=== PATIENT | male | born 1950 | race Two or more races ===

== ENCOUNTER 2022-01-18 10:12 | Inpatient (IN) | payer MEDICARE ==
[~2022-01-18] VITALS: Ht 170.2 cm; Wt 73.9 kg
[2022-01-18 11:27] LABS: Eosinophils # (auto) 0.4 10 ^3/uL (0-0.8); Eosinophils % (auto) 4.5 % (0.0-7.0); Hemoglobin 11.2 g/dL (13.5-17.5); Lymphocytes # (auto) 2.1 10 ^3/uL (0.4-5.4); Monocytes # (auto) 0.6 10 ^3/uL (0-1.3); Neutrophils # (auto) 4.7 10 ^3/uL (1.6-8.6); White Blood Cell 7.8 10^3/uL (4.4-10.8)
[2022-01-18 11:29] LABS: Basophils # (auto) 0.1 10 ^3/uL (0-0.2); Basophils % (auto) 0.8 % (0.0-2.0); Hematocrit 34.6 % (41.0-53.0); Lymphocytes % (auto) 26.2 % (10.0-50.0); Mean Corpuscular Hgb Conc. 32.3 g/dL (32.0-36.0); Mean Corpuscular Volume 80.6 fL (80.0-100.0); Monocytes % (auto) 7.9 % (0.0-12.0); Neutrophils % (auto) 60.6 % (37.0-80.0); Nucleated Red Blood Cells % 0.1 %; Red Cell Distribution Width 16.5 % (11.8-14.3)
[2022-01-18 11:44] LABS: INR 0.95 (0.9-1.15); Partial Thromboplastin Time 24.6 sec (24.6-33.4)
[2022-01-18 12:01] LABS: Potassium 4.8 mmol/L (3.5-5.1)
[2022-01-18 12:09] LABS: Albumin 3.9 g/dL (3.4-5.0); BUN/Creatinine Ratio 14.7; Bilirubin, Total 0.6 mg/dL (0.2-1.0); Calcium 9.2 mg/dL (8.5-10.1); Total Protein 8.1 g/dL (6.4-8.2)
[2022-01-18 14:54] LABS: Urine Bacteria NONE SEEN /hpf (None Seen); Urine Blood Negative /uL (Negative); Urine Specific Gravity 1.021 (1.001-1.035); Urine WBC <1 /hpf (0 - 3)
[2022-01-18] MEDS ORDERED: MORPHINE SULFATE INJ 2 MG/ml SYRG IV PRN (15:00)
[2022-01-18] MEDS ORDERED: DEXTROSE (50%) 50ML SYRG IV PRN (15:15)
[2022-01-18] MEDS ORDERED: cefTRIAXone 1GM/50ML D5W 50 ML IV ONE (15:30)
[2022-01-18] MEDS: ACCU-CHEK COMFORT CURVE STRIP VI SCH ×2 (21:18→22:48)
[2022-01-18] MEDS: InsuLIN REG 1unit/0.01ml Soln (100units/ml) SC SCH ×2 (21:24→22:57)
[2022-01-18] MEDS: HEPARIN SODIUM (PORCINE) 5000 UNITS/ML 1ML VIAL SC SCH (22:54)
[2022-01-18] MEDS: CLINDAMYCIN 600MG IV 50 ML IV SCH (22:54)
[2022-01-19] VITALS (8 sets, daily range): BP systolic 111–153; BP diastolic 39–75
[2022-01-19] MEDS ORDERED: FERR-20 PO (01:00)
[2022-01-19] MEDS ORDERED: VITA80005 PO (01:00)
[2022-01-19] MEDS ORDERED: LOSA-39 PO (01:00)
[2022-01-19] MEDS ORDERED: CHOL100055 PO (01:00)
[2022-01-19] MEDS ORDERED: PANT40TA2 PO (01:00)
[2022-01-19] MEDS ORDERED: METF-370 PO (01:00)
[2022-01-19] MEDS ORDERED: CLOP75TA70 PO (01:00)
[2022-01-19] MEDS ORDERED: METO25TA5 PO (01:00)
[2022-01-19] MEDS ORDERED: ATOR-47 PO (01:00)
[2022-01-19] MEDS ORDERED: PANT1INJ3 PO (01:00)
[2022-01-19] MEDS ORDERED: CYAN500S8 PO (01:00)
[2022-01-19] MEDS ORDERED: POTA10TA51 PO (01:00)
[2022-01-19] MEDS ORDERED: LEVO25TA6 PO (01:00)
[2022-01-19 05:32] LABS: Basophils # (auto) 0 10 ^3/uL (0-0.2); Basophils % (auto) 0.4 % (0.0-2.0); Eosinophils # (auto) 0.3 10 ^3/uL (0-0.8); Monocytes # (auto) 0.6 10 ^3/uL (0-1.3); Monocytes % (auto) 8.4 % (0.0-12.0)
[2022-01-19 05:35] LABS: Eosinophils % (auto) 4.8 % (0.0-7.0); Hematocrit 31.6 % (41.0-53.0); Hemoglobin 10.4 g/dL (13.5-17.5); Lymphocytes # (auto) 2.2 10 ^3/uL (0.4-5.4); Mean Corpuscular Hgb Conc. 32.8 g/dL (32.0-36.0); Mean Corpuscular Volume 79.3 fL (80.0-100.0); Neutrophils # (auto) 3.7 10 ^3/uL (1.6-8.6); Neutrophils % (auto) 54.4 % (37.0-80.0); Red Blood Cells 3.98 10^6/uL (4.5-5.90); Red Cell Distribution Width 16.2 % (11.8-14.3); White Blood Cell 6.9 10^3/uL (4.4-10.8)
[2022-01-19] MEDS: CLINDAMYCIN 600MG IV 50 ML IV SCH ×3 (05:35→21:50)
[2022-01-19 05:53] LABS: Potassium 3.8 mmol/L (3.5-5.1)
[2022-01-19 06:01] LABS: Albumin 3.4 g/dL (3.4-5.0); BUN/Creatinine Ratio 19.5; Bilirubin, Total 0.5 mg/dL (0.2-1.0); Calcium 8.7 mg/dL (8.5-10.1)
[2022-01-19] MEDS: ACCU-CHEK COMFORT CURVE STRIP VI SCH ×4 (06:38→21:54)
[2022-01-19] MEDS: InsuLIN REG 1unit/0.01ml Soln (100units/ml) SC SCH ×3 (06:40→21:45)
[2022-01-19] MEDS: cefTRIAXone 1GM/50ML D5W 50 ML IV SCH (08:30)
[2022-01-19] MEDS: HEPARIN SODIUM (PORCINE) 5000 UNITS/ML 1ML VIAL SC SCH ×2 (10:44→21:44)
[2022-01-19] MEDS ORDERED: FUROSEMIDE 20 MG/2 ML VIAL IV ONE (13:15)
[2022-01-19] MEDS: FUROSEMIDE 20 MG/2 ML VIAL IV SCH (19:22)
[2022-01-19] MEDS: ATORVASTATIN 20 MG TAB PO SCH (21:47)
[2022-01-20 05:00] VITALS: BP 114/59
[2022-01-20] MEDS: ACCU-CHEK COMFORT CURVE STRIP VI SCH ×4 (06:18→21:37)
[2022-01-20] MEDS: CLINDAMYCIN 600MG IV 50 ML IV SCH ×3 (06:23→21:46)
[2022-01-20] MEDS: InsuLIN REG 1unit/0.01ml Soln (100units/ml) SC SCH ×4 (06:23→21:55)
[2022-01-20] MEDS: FUROSEMIDE 20 MG/2 ML VIAL IV SCH ×2 (06:23→18:00)
[2022-01-20 07:07] LABS: Basophils # (auto) 0 10 ^3/uL (0-0.2); Basophils % (auto) 0.4 % (0.0-2.0); Hemoglobin 12.3 g/dL (13.5-17.5); Lymphocytes # (auto) 2.7 10 ^3/uL (0.4-5.4); Monocytes # (auto) 0.7 10 ^3/uL (0-1.3); White Blood Cell 8.5 10^3/uL (4.4-10.8)
[2022-01-20 07:10] LABS: Eosinophils # (auto) 0.3 10 ^3/uL (0-0.8); Hematocrit 36.9 % (41.0-53.0); Mean Corpuscular Hemoglobin 27.1 pg (28.0-32.0); Mean Corpuscular Hgb Conc. 33.4 g/dL (32.0-36.0); Neutrophils # (auto) 4.7 10 ^3/uL (1.6-8.6); Neutrophils % (auto) 55.6 % (37.0-80.0); Red Blood Cells 4.55 10^6/uL (4.5-5.90); Red Cell Distribution Width 16.3 % (11.8-14.3)
[2022-01-20 07:23] LABS: INR 0.94 (0.9-1.15); Partial Thromboplastin Time 25.5 sec (24.6-33.4)
[2022-01-20 07:27] LABS: Potassium 3.9 mmol/L (3.5-5.1)
[2022-01-20 07:34] LABS: BUN/Creatinine Ratio 19.2; Calcium 9.6 mg/dL (8.5-10.1)
[2022-01-20 08:30] VITALS: BP 108/53
[2022-01-20] MEDS: cefTRIAXone 1GM/50ML D5W 50 ML IV SCH (08:39)
[2022-01-20 09:21] VITALS: BP 108/53
[2022-01-20] MEDS: HEPARIN SODIUM (PORCINE) 5000 UNITS/ML 1ML VIAL SC SCH ×2 (10:30→22:00)
[2022-01-20 13:00] VITALS: BP 102/60
[2022-01-20] MEDS ORDERED: fentaNYL CITRATE 100 MCG/2 ML VL ONE ×2 (17:22→18:49)
[2022-01-20] MEDS ORDERED: SODIUM CHL 0.9% 50 ML ONE (17:22)
[2022-01-20] MEDS ORDERED: MIDAZOLAM HCL 2MG/2ML 2ml VIAL (1mg/ml) ONE (17:22)
[2022-01-20] MEDS ORDERED: ANGIOMAX 250 MG VIAL IV ONE (17:25)
[2022-01-20] MEDS ORDERED: IOHEXOL 350 MG/ML 100ML IJ ONE ×2 (17:27→18:11)
[2022-01-20] MEDS ORDERED: LIDOCAINE 2%HCL (LOCAL ANESTH.) INJ 20ML MDV ONE ×2 (17:28→17:54)
[2022-01-20] MEDS ORDERED: CLOPIDOGREL 300 MG TAB ONE (19:02)
[2022-01-20] MEDS ORDERED: ASPirin 81 mg TAB ONE (19:02)
[2022-01-20] MEDS: ATORVASTATIN 20 MG TAB PO SCH (21:46)
[2022-01-20 22:00] VITALS: BP 134/59
[2022-01-20] MEDS ORDERED: RIVAROXABAN 10 MG TAB PO SCH (22:00)
[2022-01-21 05:00] VITALS: BP 127/72
[2022-01-21] MEDS: ACCU-CHEK COMFORT CURVE STRIP VI SCH ×2 (05:57→11:40)
[2022-01-21] MEDS: FUROSEMIDE 20 MG/2 ML VIAL IV SCH (05:57)
[2022-01-21] MEDS: CLINDAMYCIN 600MG IV 50 ML IV SCH (05:57)
[2022-01-21] MEDS: InsuLIN REG 1unit/0.01ml Soln (100units/ml) SC SCH ×2 (06:48→12:07)
[2022-01-21 08:30] VITALS: BP 103/58
[2022-01-21] MEDS: cefTRIAXone 1GM/50ML D5W 50 ML IV SCH (08:40)
[2022-01-21 09:00] VITALS: BP 103/58
[2022-01-21] MEDS: HEPARIN SODIUM (PORCINE) 5000 UNITS/ML 1ML VIAL SC SCH (09:49)
[2022-01-21] MEDS ORDERED: CLOPIDOGREL BISULFATE 75 MG TAB PO SCH (10:00)
[2022-01-21] MEDS ORDERED: CLIN300C8 PO (12:23)
[2022-01-21 13:00] VITALS: BP 134/56
[2022-01-21 13:24] VITALS: BP 134/56
== END 2022-01-21 16:56 | disposition home or self-care (01) | DRG 254 ==
LOC: ER 10:12 → OVERFLOW 15:11 → CENTRAL 23:49
PROVIDERS: ADMIT Registered Nurse; ATTEND Family Medicine
PROC: 047R3ZZ Dilation of Right Posterior Tibial Artery, Percutaneous Approach (ICD-10-PCS; principal; 2022-01-18)
PROC: B44FZZZ Ultrasonography of Right Lower Extremity Arteries (ICD-10-PCS; 2022-01-18)
PROC: B41F1ZZ Fluoroscopy of Right Lower Extremity Arteries using Low Osmolar Contrast (ICD-10-PCS; 2022-01-18)
DX: E11.51 Type 2 diabetes mellitus with diabetic peripheral angiopathy without gangrene (principal); E11.621 Type 2 diabetes mellitus with foot ulcer; D63.8 Anemia in other chronic diseases classified elsewhere; E11.22 Type 2 diabetes mellitus with diabetic chronic kidney disease; E11.65 Type 2 diabetes mellitus with hyperglycemia; I12.9 Hypertensive chronic kidney disease with stage 1 through stage 4 chronic kidney disease, or unspecified chronic kidney disease; L97.529 Non-pressure chronic ulcer of other part of left foot with unspecified severity; N18.2 Chronic kidney disease, stage 2 (mild); Z20.822 Contact with and (suspected) exposure to COVID-19; I25.10 Atherosclerotic heart disease of native coronary artery without angina pectoris; E78.5 Hyperlipidemia, unspecified; L08.9 Local infection of the skin and subcutaneous tissue, unspecified; R09.89 Other specified symptoms and signs involving the circulatory and respiratory systems; E07.9 Disorder of thyroid, unspecified; E66.9 Obesity, unspecified; Z79.84 Long term (current) use of oral hypoglycemic drugs; Z68.25 Body mass index [BMI] 25.0-25.9, adult
CPT/HCPCS: 36415; 37220; 71045; 73700; 73718; 75710; 80048; 80053; 81001; 82962; 83880; 84484; 85025; 85610; 85730; 86850; 86900; 86901; 87077; 87186; 87205; 93005; 93306; 93926; 96365; 96372; 99152; 99153; C1769; G0378; J0696; J1815; J2250; J3490

== ENCOUNTER 2022-04-12 11:40 | Inpatient (IN) | payer MEDICARE ==
[~2022-04-12] VITALS: Ht 162.6 cm; Wt 69.6 kg
[~2022-04-12 11:40] MED LIST: ATOR-47 PO; CHOL100055 PO; CLIN300C8 PO; CLOP75TA70 PO; CYAN500S8 PO; FERR-20 PO; LEVO25TA6 PO; LOSA-39 PO; METF-370 PO; METO25TA5 PO; PANT1INJ3 PO; PANT40TA2 PO; POTA10TA51 PO; VITA80005 PO
[2022-04-12 13:12] LABS: Basophils # (auto) 0 10 ^3/uL (0-0.2); Eosinophils # (auto) 0.1 10 ^3/uL (0-0.8); Lymphocytes # (auto) 1.6 10 ^3/uL (0.4-5.4); Mean Corpuscular Volume 79.3 fL (80.0-100.0); Monocytes # (auto) 0.6 10 ^3/uL (0-1.3); Neutrophils # (auto) 6.3 10 ^3/uL (1.6-8.6); White Blood Cell 8.7 10^3/uL (4.4-10.8)
[2022-04-12 13:14] LABS: Basophils % (auto) 0.4 % (0.0-2.0); Eosinophils % (auto) 1.4 % (0.0-7.0); Hematocrit 35.8 % (41.0-53.0); Hemoglobin 11.7 g/dL (13.5-17.5); Lymphocytes % (auto) 18.4 % (10.0-50.0); Mean Corpuscular Hemoglobin 25.8 pg (28.0-32.0); Mean Corpuscular Hgb Conc. 32.5 g/dL (32.0-36.0); Neutrophils % (auto) 72.8 % (37.0-80.0); Red Blood Cells 4.51 10^6/uL (4.5-5.90); Red Cell Distribution Width 14.9 % (11.8-14.3)
[2022-04-12 13:20] LABS: INR 0.97 (0.9-1.15); Partial Thromboplastin Time 25.4 sec (24.6-33.4)
[2022-04-12 13:24] LABS: Albumin 3.5 g/dL (3.4-5.0); BUN/Creatinine Ratio 15.7; Calcium 8.9 mg/dL (8.5-10.1); Potassium 4.1 mmol/L (3.5-5.1)
[2022-04-12 13:27] LABS: Bilirubin, Total 0.6 mg/dL (0.2-1.0); Total Protein 7.7 g/dL (6.4-8.2)
[2022-04-12] MEDS ORDERED: PIPERACILLIN-TAZOB 3.375GM 100 ML IV ONE (15:15)
[2022-04-12] MEDS ORDERED: MORPHINE SULFATE INJ 2 MG/ml SYRG IV PRN (15:45)
[2022-04-12] MEDS ORDERED: NITROGLYCERIN 0.4 MG SL TAB SL PRN (15:45)
[2022-04-12] MEDS ORDERED: DEXTROSE (50%) 50ML SYRG IV PRN (16:15)
[2022-04-12] MEDS: ACCU-CHEK COMFORT CURVE STRIP VI SCH ×2 (17:00→22:30)
[2022-04-12 17:12] LABS: Cholesterol 150 mg/dL (< 200)
[2022-04-12 17:15] LABS: HDL Cholesterol 41 mg/dL (40-59); LDL Cholesterol 80 mg/dL (< 100); Triglycerides 255 mg/dL (< 150)
[2022-04-12] MEDS: InsuLIN REG 1unit/0.01ml Soln (100units/ml) SC SCH ×2 (20:46→22:30)
[2022-04-12] MEDS: HYDROcodone-ACET 5/325MG TAB PO PRN (20:47)
[2022-04-12] MEDS: MORPHINE SULFATE INJ 2 MG/ml SYRG IV PRN (23:59)
[2022-04-13] MEDS: HYDROcodone-ACET 5/325MG TAB PO PRN ×4 (01:08→20:41)
[2022-04-13] MEDS: InsuLIN REG 1unit/0.01ml Soln (100units/ml) SC SCH ×4 (06:46→23:37)
[2022-04-13] MEDS: ACCU-CHEK COMFORT CURVE STRIP VI SCH ×3 (06:46→17:00)
[2022-04-13 06:59] LABS: Urine Bacteria NONE SEEN /hpf (None Seen); Urine Blood Negative /uL (Negative); Urine Specific Gravity 1.019 (1.001-1.035); Urine WBC 5 /hpf (0 - 3)
[2022-04-13 07:06] LABS: BUN/Creatinine Ratio 13.3; Calcium 9.2 mg/dL (8.5-10.1); Potassium 3.9 mmol/L (3.5-5.1)
[2022-04-13 07:15] LABS: Basophils # (auto) 0 10 ^3/uL (0-0.2); Basophils % (auto) 0.3 % (0.0-2.0); Eosinophils # (auto) 0.2 10 ^3/uL (0-0.8); Monocytes # (auto) 0.8 10 ^3/uL (0-1.3); Nucleated Red Blood Cells % 0.1 %
[2022-04-13 07:17] LABS: Eosinophils % (auto) 2.7 % (0.0-7.0); Hematocrit 34.8 % (41.0-53.0); Hemoglobin 11.1 g/dL (13.5-17.5); Lymphocytes # (auto) 2.3 10 ^3/uL (0.4-5.4); Lymphocytes % (auto) 26.8 % (10.0-50.0); Mean Corpuscular Hemoglobin 25.5 pg (28.0-32.0); Mean Corpuscular Volume 79.8 fL (80.0-100.0); Monocytes % (auto) 9.2 % (0.0-12.0); Neutrophils # (auto) 5.2 10 ^3/uL (1.6-8.6); Red Blood Cells 4.36 10^6/uL (4.5-5.90); Red Cell Distribution Width 14.6 % (11.8-14.3); White Blood Cell 8.6 10^3/uL (4.4-10.8)
[2022-04-13] MEDS: MORPHINE SULFATE INJ 2 MG/ml SYRG IV PRN ×2 (08:12→22:59)
[2022-04-13] MEDS ORDERED: cefTRIAXone 1GM/50ML D5W 50 ML IV ONE (12:45)
[2022-04-13] MEDS: CLINDAMYCIN 300MG IV 50 ML IV SCH ×2 (14:17→22:57)
[2022-04-13 23:37] VITALS: BP 103/52
[2022-04-14] MEDS: MORPHINE SULFATE INJ 2 MG/ml SYRG IV PRN (03:22)
[2022-04-14] MEDS: ACCU-CHEK COMFORT CURVE STRIP VI SCH ×5 (03:47→22:18)
[2022-04-14 05:20] VITALS: BP 98/48
[2022-04-14] MEDS: CLINDAMYCIN 300MG IV 50 ML IV SCH ×3 (05:50→21:51)
[2022-04-14] MEDS: InsuLIN REG 1unit/0.01ml Soln (100units/ml) SC SCH ×4 (06:10→22:17)
[2022-04-14] MEDS ORDERED: ceFAZolin 1GM/50ML 100 ML IV ONE (08:53)
[2022-04-14 09:00] VITALS: BP 139/59
[2022-04-14] MEDS: cefTRIAXone 1GM/50ML D5W 50 ML IV SCH (09:00)
[2022-04-14] MEDS ORDERED: fentaNYL CITRATE 100 MCG/2 ML VL ONE (09:14)
[2022-04-14] MEDS ORDERED: MIDAZOLAM HCL 2MG/2ML 2ml VIAL (1mg/ml) ONE (09:14)
[2022-04-14] MEDS ORDERED: MEPERIDINE HCL (25 MG/ML) 1ML VIAL ONE (09:14)
[2022-04-14] MEDS ORDERED: ceFAZolin 1GM VL ONE (09:36)
[2022-04-14] MEDS ORDERED: ROPIVACAINE 0.5% (5MG/ML) 20ML AMPULE IJ ONE (09:36)
[2022-04-14] MEDS ORDERED: DexAMETHasone SOD PHOS 10MG/1ML VIAL INJ ONE (09:49)
[2022-04-14] MEDS ORDERED: PROPOFOL 10 MG/ML 20 ML IV ONE (09:49)
[2022-04-14 13:00] VITALS: BP 109/55
[2022-04-14] MEDS ORDERED: LIDOCAINE 1% (LOCAL ANESTH.) PF 5ml SDV ID ONE (16:15)
[2022-04-14 16:59] VITALS: BP 110/49
[2022-04-14 20:00] VITALS: BP 110/47
[2022-04-14] MEDS: RIVAROXABAN 10 MG TAB PO SCH (21:50)
[2022-04-14 22:00] VITALS: BP_SYST 100; BP_SYST 110; BP_DIAS 47; BP_DIAS 56
[2022-04-15 04:54] VITALS: BP 133/51
[2022-04-15] MEDS: CLINDAMYCIN 300MG IV 50 ML IV SCH ×3 (06:10→21:47)
[2022-04-15] MEDS: SODIUM CHLOR 0.9% PF (SALINE LOCK) 10ML VIAL/SYR IV SCH ×3 (06:11→21:48)
[2022-04-15] MEDS: ACCU-CHEK COMFORT CURVE STRIP VI SCH ×4 (06:34→22:23)
[2022-04-15] MEDS: InsuLIN REG 1unit/0.01ml Soln (100units/ml) SC SCH ×4 (06:34→22:30)
[2022-04-15 08:54] VITALS: BP 140/52
[2022-04-15] MEDS: cefTRIAXone 1GM/50ML D5W 50 ML IV SCH (09:52)
[2022-04-15] MEDS: RIVAROXABAN 10 MG TAB PO SCH ×2 (09:56→21:48)
[2022-04-15 13:00] VITALS: BP 128/58
[2022-04-15] MEDS: ACETAMINOPHEN 325 MG TAB PO PRN ×2 (16:05→21:48)
[2022-04-15 16:44] VITALS: BP 131/46
[2022-04-15 19:30] VITALS: BP 137/69
[2022-04-15 22:00] VITALS: BP 137/69
[2022-04-16 05:00] VITALS: BP_SYST 144; BP_SYST 153; BP_DIAS 68; BP_DIAS 85
[2022-04-16] MEDS: CLINDAMYCIN 300MG IV 50 ML IV SCH ×3 (05:46→21:35)
[2022-04-16] MEDS: ACCU-CHEK COMFORT CURVE STRIP VI SCH ×4 (06:25→22:15)
[2022-04-16] MEDS: InsuLIN REG 1unit/0.01ml Soln (100units/ml) SC SCH ×4 (06:34→22:19)
[2022-04-16 08:00] VITALS: BP_SYST 136; BP_SYST 137; BP_DIAS 54; BP_DIAS 69
[2022-04-16] MEDS: SODIUM CHLOR 0.9% PF (SALINE LOCK) 10ML VIAL/SYR IV SCH ×2 (10:00→21:43)
[2022-04-16] MEDS: cefTRIAXone 1GM/50ML D5W 50 ML IV SCH (10:11)
[2022-04-16] MEDS: RIVAROXABAN 10 MG TAB PO SCH ×2 (10:12→21:39)
[2022-04-16] MEDS: HYDROcodone-ACET 5/325MG TAB PO PRN (10:12)
[2022-04-16 12:00] VITALS: BP 103/43
[2022-04-16 16:00] VITALS: BP 130/52
[2022-04-16] MEDS: ACETAMINOPHEN 325 MG TAB PO PRN (18:22)
[2022-04-16] MEDS: DOCUSATE SOD 100 MG CAP PO SCH (21:39)
[2022-04-17 05:00] VITALS: BP 96/62
[2022-04-17] MEDS: CLINDAMYCIN 300MG IV 50 ML IV SCH (06:00)
[2022-04-17] MEDS: ACCU-CHEK COMFORT CURVE STRIP VI SCH ×4 (07:12→22:00)
[2022-04-17] MEDS: InsuLIN REG 1unit/0.01ml Soln (100units/ml) SC SCH ×4 (07:16→22:00)
[2022-04-17] MEDS: HYDROcodone-ACET 5/325MG TAB PO PRN (08:16)
[2022-04-17] MEDS: cefTRIAXone 1GM/50ML D5W 50 ML IV SCH (08:16)
[2022-04-17] MEDS: SODIUM CHLOR 0.9% PF (SALINE LOCK) 10ML VIAL/SYR IV SCH ×2 (08:17→22:59)
[2022-04-17] MEDS: DOCUSATE SOD 100 MG CAP PO SCH ×2 (08:17→22:00)
[2022-04-17] MEDS: RIVAROXABAN 10 MG TAB PO SCH ×2 (08:17→23:00)
[2022-04-17] MEDS ORDERED: ACETAMINOPHEN 325 MG TAB PO ONE (08:45)
[2022-04-17 09:00] VITALS: BP 91/37
[2022-04-17] MEDS ORDERED: levoFLOXacin 500MG 100 ML IV SCH (10:00)
[2022-04-17 13:00] VITALS: BP 99/58
[2022-04-17 16:53] VITALS: BP 95/57
[2022-04-17 21:59] VITALS: BP 99/56
[2022-04-18] MEDS: InsuLIN REG 1unit/0.01ml Soln (100units/ml) SC SCH ×4 (06:45→22:06)
[2022-04-18] MEDS: ACCU-CHEK COMFORT CURVE STRIP VI SCH ×4 (06:45→22:04)
[2022-04-18] MEDS: RIVAROXABAN 10 MG TAB PO SCH ×2 (08:13→22:03)
[2022-04-18] MEDS: SODIUM CHLOR 0.9% PF (SALINE LOCK) 10ML VIAL/SYR IV SCH ×2 (08:13→22:06)
[2022-04-18] MEDS: cefTRIAXone 1GM/50ML D5W 50 ML IV SCH (08:13)
[2022-04-18] MEDS: DOCUSATE SOD 100 MG CAP PO SCH ×2 (08:13→22:03)
[2022-04-18 08:17] VITALS: BP 103/59
[2022-04-18] MEDS ORDERED: cefTRIAXone 1GM/50ML D5W 50 ML IV SCH (09:00)
[2022-04-18 13:12] VITALS: BP_SYST 126; BP_SYST 91; BP_DIAS 51; BP_DIAS 70
[2022-04-18 17:00] VITALS: BP 94/43
[2022-04-18 22:00] VITALS: BP 105/59
[2022-04-19] MEDS: HYDROcodone-ACET 5/325MG TAB PO PRN (01:14)
[2022-04-19 05:00] VITALS: BP 127/75
[2022-04-19] MEDS: ACCU-CHEK COMFORT CURVE STRIP VI SCH ×3 (06:12→17:03)
[2022-04-19] MEDS: InsuLIN REG 1unit/0.01ml Soln (100units/ml) SC SCH ×3 (06:13→18:30)
[2022-04-19 08:58] VITALS: BP 104/56
[2022-04-19] MEDS: cefTRIAXone 1GM/50ML D5W 50 ML IV SCH (09:05)
[2022-04-19] MEDS: DOCUSATE SOD 100 MG CAP PO SCH (09:06)
[2022-04-19] MEDS: RIVAROXABAN 10 MG TAB PO SCH (09:06)
[2022-04-19] MEDS: SODIUM CHLOR 0.9% PF (SALINE LOCK) 10ML VIAL/SYR IV SCH (10:00)
[2022-04-19 13:00] VITALS: BP 101/53
[2022-04-19 16:17] VITALS: BP 99/55
== END 2022-04-19 18:45 | DRG 617 ==
LOC: ER 11:40 → OVERFLOW 15:50 → WEST WING 04-13 21:47
PROVIDERS: ADMIT Registered Nurse; ATTEND Family Medicine
PROC: 02HV33Z Insertion of Infusion Device into Superior Vena Cava, Percutaneous Approach (ICD-10-PCS; 2022-04-14)
PROC: B548ZZA Ultrasonography of Superior Vena Cava, Guidance (ICD-10-PCS; 2022-04-14)
PROC: 0Y6W0Z0 Detachment at Left 4th Toe, Complete, Open Approach (ICD-10-PCS; principal; 2022-04-14 09:53)
DX: E11.69 Type 2 diabetes mellitus with other specified complication (principal); E11.52 Type 2 diabetes mellitus with diabetic peripheral angiopathy with gangrene; M86.8X7 Other osteomyelitis, ankle and foot; E11.621 Type 2 diabetes mellitus with foot ulcer; I82.442 Acute embolism and thrombosis of left tibial vein; E66.9 Obesity, unspecified; I10 Essential (primary) hypertension; L97.529 Non-pressure chronic ulcer of other part of left foot with unspecified severity; B95.61 Methicillin susceptible Staphylococcus aureus infection as the cause of diseases classified elsewhere; Z68.26 Body mass index [BMI] 26.0-26.9, adult; I25.10 Atherosclerotic heart disease of native coronary artery without angina pectoris; E78.5 Hyperlipidemia, unspecified; E07.9 Disorder of thyroid, unspecified; Z89.422 Acquired absence of other left toe(s); I25.2 Old myocardial infarction; Z20.822 Contact with and (suspected) exposure to COVID-19
CPT/HCPCS: 36415; 36569; 71045; 80048; 80053; 80061; 81001; 82962; 83036; 83605; 84484; 85025; 85610; 85730; 86850; 86900; 86901; 87040; 87070; 87075; 87077; 87186; 87205; 87426; 93005; 93926; 97163; G0378; J0690; J0696; J1100; J1815; J2250; J2543; J2704; J3490

== ENCOUNTER 2022-05-11 18:21 | Inpatient (IN) | payer MEDICARE ==
[~2022-05-11] VITALS: Ht 162.6 cm; Wt 75.1 kg
[2022-05-11] MEDS ORDERED: cefTRIAXone 1GM/50ML D5W 50 ML IV ONE (19:30)
[2022-05-11 21:31] LABS: Basophils # (auto) 0 10 ^3/uL (0-0.2); Eosinophils # (auto) 0.4 10 ^3/uL (0-0.8); Hemoglobin 11.7 g/dL (13.5-17.5); Lymphocytes # (auto) 2.3 10 ^3/uL (0.4-5.4); White Blood Cell 7.2 10^3/uL (4.4-10.8)
[2022-05-11 21:33] LABS: Basophils % (auto) 0.5 % (0.0-2.0); Eosinophils % (auto) 4.9 % (0.0-7.0); Hematocrit 36.1 % (41.0-53.0); Mean Corpuscular Hemoglobin 25.1 pg (28.0-32.0); Mean Corpuscular Hgb Conc. 32.3 g/dL (32.0-36.0); Mean Corpuscular Volume 77.6 fL (80.0-100.0); Monocytes # (auto) 0.6 10 ^3/uL (0-1.3); Monocytes % (auto) 7.7 % (0.0-12.0); Neutrophils # (auto) 3.9 10 ^3/uL (1.6-8.6); Neutrophils % (auto) 54.9 % (37.0-80.0); Nucleated Red Blood Cells % 0.1 %; Red Blood Cells 4.66 10^6/uL (4.5-5.90); Red Cell Distribution Width 15.7 % (11.8-14.3)
[2022-05-11 21:46] LABS: Albumin 3.1 g/dL (3.4-5.0); Calcium 9.3 mg/dL (8.5-10.1); Potassium 4.2 mmol/L (3.5-5.1)
[2022-05-11 21:49] LABS: Bilirubin, Total 0.4 mg/dL (0.2-1.0); Total Protein 8.6 g/dL (6.4-8.2)
[2022-05-12] MEDS ORDERED: MORPHINE SULFATE INJ 2 MG/ml SYRG IV PRN
[2022-05-12] MEDS ORDERED: ONDANSETRON HCL 4 MG/2 ML VIAL IV PRN
[2022-05-12] MEDS ORDERED: MAALOX PLUS or MAALOX 30 ML PO PRN
[2022-05-12] MEDS ORDERED: LORazepam 0.5 MG TAB PO PRN
[2022-05-12] MEDS ORDERED: DOCUSATE SOD 100 MG CAP PO PRN
[2022-05-12] MEDS ORDERED: ACETAMINOPHEN 325 MG TAB PO PRN
[2022-05-12] MEDS: SODIUM CHLORIDE 0.9% 1,000 ML IV SCH ×2 (05:25→19:52)
[2022-05-12] MEDS: ROPIVACAINE 0.5% (5MG/ML) 20ML AMPULE IJ ONE ×2 (06:52→09:25)
[2022-05-12] MEDS ORDERED: BACITRACIN TOP OINT 1 UD PKG TOP ONE (06:52)
[2022-05-12] MEDS ORDERED: ceFAZolin 1GM VL ONE (06:53)
[2022-05-12] MEDS ORDERED: ROCURONIUM 10MG/ML 10ML VIAL IV ONE (07:11)
[2022-05-12] MEDS ORDERED: SUCCINYLCHOLINE CHLORIDE 20 MG/ML 10ML VIAL IV ONE (07:11)
[2022-05-12 07:24] LABS: Calcium 9.7 mg/dL (8.5-10.1); Potassium 4.3 mmol/L (3.5-5.1)
[2022-05-12 07:28] LABS: BUN/Creatinine Ratio 12.7
[2022-05-12 07:40] LABS: Basophils # (auto) 0 10 ^3/uL (0-0.2); Basophils % (auto) 0.5 % (0.0-2.0); Eosinophils # (auto) 0.4 10 ^3/uL (0-0.8); Eosinophils % (auto) 5.6 % (0.0-7.0); Hematocrit 36.5 % (41.0-53.0); Hemoglobin 11.7 g/dL (13.5-17.5); Lymphocytes # (auto) 2.2 10 ^3/uL (0.4-5.4); Lymphocytes % (auto) 33.4 % (10.0-50.0); Mean Corpuscular Hemoglobin 25.4 pg (28.0-32.0); Mean Corpuscular Hgb Conc. 32.2 g/dL (32.0-36.0); Mean Corpuscular Volume 79.1 fL (80.0-100.0); Monocytes # (auto) 0.6 10 ^3/uL (0-1.3); Monocytes % (auto) 8.3 % (0.0-12.0); Neutrophils # (auto) 3.5 10 ^3/uL (1.6-8.6); Neutrophils % (auto) 52.2 % (37.0-80.0); Nucleated Red Blood Cells % 0.1 %; Red Blood Cells 4.61 10^6/uL (4.5-5.90); Red Cell Distribution Width 15.9 % (11.8-14.3); White Blood Cell 6.7 10^3/uL (4.4-10.8)
[2022-05-12] MEDS ORDERED: PROPOFOL 10 MG/ML 20 ML IV ONE (07:56)
[2022-05-12] MEDS ORDERED: SODIUM CHLORIDE LOCK 10 ML ONE (07:56)
[2022-05-12] MEDS ORDERED: MIDAZOLAM HCL 2MG/2ML 2ml VIAL (1mg/ml) ONE (07:56)
[2022-05-12] MEDS ORDERED: fentaNYL CITRATE 100 MCG/2 ML VL ONE (07:56)
[2022-05-12] MEDS ORDERED: HYDROmorphone HCL 2 MG/ML VL/or syr IV PRN ×3 (08:00)
[2022-05-12] MEDS ORDERED: METOCLOPRAMIDE HCL 5MG/ml INJ 2ml VIAL IV PRN (08:00)
[2022-05-12] MEDS ORDERED: ACCU-CHEK COMFORT CURVE STRIP VI ONE (08:00)
[2022-05-12] MEDS ORDERED: ceFAZolin 1GM/50ML 100 ML IV ONE (08:55)
[2022-05-12] MEDS: MORPHINE SULFATE INJ 2 MG/ml SYRG IV PRN ×2 (10:27→10:59)
[2022-05-12] MEDS: cefTRIAXone 1GM/50ML D5W 50 ML IV SCH (16:25)
[2022-05-12 17:25] VITALS: BP 138/45
[2022-05-12] MEDS ORDERED: LEVO50TA7 PO (18:51)
[2022-05-12] MEDS ORDERED: INSU70IN3 SC (18:52)
[2022-05-12] MEDS: ATORVASTATIN 20 MG TAB PO SCH (19:52)
[2022-05-12] MEDS: HYDROcodone-ACET 5/325MG TAB PO PRN (21:59)
[2022-05-12 22:00] VITALS: BP 135/67
[2022-05-13 05:00] VITALS: BP 103/51
[2022-05-13] MEDS: LEVOTHYROXINE SODIUM 25 MCG TAB PO SCH (06:21)
[2022-05-13 09:00] VITALS: BP 116/33
[2022-05-13] MEDS: SODIUM CHLORIDE 0.9% 1,000 ML IV SCH (09:20)
[2022-05-13] MEDS: METOPROLOL TARTRATE 25 MG TAB PO SCH ×2 (09:43→10:00)
[2022-05-13] MEDS: LOSARTAN POTASSIUM 50 MG TAB PO SCH ×2 (09:43→10:00)
[2022-05-13] MEDS: CLOPIDOGREL BISULFATE 75 MG TAB PO SCH ×2 (09:44→10:00)
[2022-05-13] MEDS: cefTRIAXone 1GM/50ML D5W 50 ML IV SCH (09:44)
[2022-05-13 13:00] VITALS: BP 99/35
[2022-05-13] MEDS: HYDROcodone-ACET 5/325MG TAB PO PRN (16:06)
[2022-05-13 17:00] VITALS: BP 118/45
[2022-05-13] MEDS: ATORVASTATIN 20 MG TAB PO SCH (18:51)
[2022-05-14] MEDS: SODIUM CHLORIDE 0.9% 1,000 ML IV SCH (02:27)
[2022-05-14 05:28] VITALS: BP 132/76
[2022-05-14] MEDS: LEVOTHYROXINE SODIUM 25 MCG TAB PO SCH (06:49)
[2022-05-14 08:00] VITALS: BP 129/62
[2022-05-14] MEDS: cefTRIAXone 1GM/50ML D5W 50 ML IV SCH (10:51)
[2022-05-14] MEDS: METOPROLOL TARTRATE 25 MG TAB PO SCH (10:55)
[2022-05-14] MEDS: CLOPIDOGREL BISULFATE 75 MG TAB PO SCH (10:55)
[2022-05-14] MEDS: LOSARTAN POTASSIUM 50 MG TAB PO SCH (10:56)
[2022-05-14 12:00] VITALS: BP 119/52
[2022-05-14 14:56] VITALS: BP 119/52
== END 2022-05-14 15:30 | disposition home health service (06) | DRG 501 ==
LOC: ER 18:21 → OVERFLOW 23:57 → CENTRAL 05-12 17:13
PROVIDERS: ADMIT Hospitalist; ATTEND Family Medicine
PROC: 0LBW0ZZ Excision of Left Foot Tendon, Open Approach (ICD-10-PCS; principal; 2022-05-12 09:12)
DX: T87.44 Infection of amputation stump, left lower extremity (principal); I74.3 Embolism and thrombosis of arteries of the lower extremities; L03.818 Cellulitis of other sites; E11.69 Type 2 diabetes mellitus with other specified complication; T81.89XA Other complications of procedures, not elsewhere classified, initial encounter; E03.9 Hypothyroidism, unspecified; E11.51 Type 2 diabetes mellitus with diabetic peripheral angiopathy without gangrene; E11.621 Type 2 diabetes mellitus with foot ulcer; E78.5 Hyperlipidemia, unspecified; I25.10 Atherosclerotic heart disease of native coronary artery without angina pectoris; Z20.822 Contact with and (suspected) exposure to COVID-19; L97.529 Non-pressure chronic ulcer of other part of left foot with unspecified severity; I10 Essential (primary) hypertension; E66.9 Obesity, unspecified; Y83.5 Amputation of limb(s) as the cause of abnormal reaction of the patient, or of later complication, without mention of misadventure at the time of the procedure; Y92.89 Other specified places as the place of occurrence of the external cause; Z89.422 Acquired absence of other left toe(s); Z68.28 Body mass index [BMI] 28.0-28.9, adult
CPT/HCPCS: 36415; 71045; 73630; 73700; 80048; 80053; 82962; 85025; 87070; 87075; 87077; 87186; 87205; 87426; 96365; 96375; G0378; J0330; J0690; J0696; J2250; J2704

== ENCOUNTER 2022-07-05 20:58 | Inpatient (IN) | payer MEDICARE ==
[~2022-07-05] VITALS: Ht 162.6 cm; Wt 67.3 kg
[~2022-07-05 20:58] MED LIST changes: +INSU70IN3 SC; +LEVO50TA7 PO
[2022-07-05 22:35] LABS: Basophils # (auto) 0 10 ^3/uL (0-0.2); Eosinophils # (auto) 0.4 10 ^3/uL (0-0.8); Hemoglobin 10.7 g/dL (13.5-17.5); Mean Corpuscular Hemoglobin 24.9 pg (28.0-32.0); Mean Corpuscular Hgb Conc. 32.6 g/dL (32.0-36.0)
[2022-07-05 22:36] LABS: Basophils % (auto) 0.5 % (0.0-2.0); Hematocrit 32.8 % (41.0-53.0); Lymphocytes # (auto) 2.6 10 ^3/uL (0.4-5.4); Lymphocytes % (auto) 28.2 % (10.0-50.0); Mean Corpuscular Volume 76.5 fL (80.0-100.0); Monocytes # (auto) 0.6 10 ^3/uL (0-1.3); Monocytes % (auto) 6.9 % (0.0-12.0); Neutrophils # (auto) 5.5 10 ^3/uL (1.6-8.6); Neutrophils % (auto) 60.4 % (37.0-80.0); Red Blood Cells 4.29 10^6/uL (4.5-5.90); Red Cell Distribution Width 17.3 % (11.8-14.3); White Blood Cell 9.1 10^3/uL (4.4-10.8)
[2022-07-05 22:51] LABS: Calcium 8.9 mg/dL (8.5-10.1); Potassium 4.1 mmol/L (3.5-5.1)
[2022-07-05 23:01] LABS: BUN/Creatinine Ratio 13.3; Bilirubin, Total 0.6 mg/dL (0.2-1.0); CRP High Sensitivity 1.46 mg/dL (< 0.3); Total Protein 7.9 g/dL (6.4-8.2)
[2022-07-06] MEDS ORDERED: ONDANSETRON HCL 4 MG/2 ML VIAL IV PRN (06:30)
[2022-07-06] MEDS ORDERED: DEXTROSE (50%) 50ML SYRG IV PRN (06:30)
[2022-07-06] MEDS: InsuLIN REG 1unit/0.01ml Soln (100units/ml) SC SCH ×4 (08:15→21:41)
[2022-07-06] MEDS: LEVOTHYROXINE SODIUM 50 MCG TAB PO SCH (08:38)
[2022-07-06] MEDS: ACCU-CHEK COMFORT CURVE STRIP VI SCH ×4 (08:38→21:17)
[2022-07-06 13:54] LABS: INR 0.97 (0.9-1.15); Partial Thromboplastin Time 27.9 sec (24.6-33.4)
[2022-07-06] MEDS ORDERED: VANCOMYCIN PER PHARMACY 0 MG IV SCH (14:30)
[2022-07-06] MEDS: LOSARTAN POTASSIUM 50 MG TAB PO SCH (14:48)
[2022-07-06] MEDS: PANTOPRAZOLE 40 MG TAB PO SCH (14:48)
[2022-07-06] MEDS: CLOPIDOGREL BISULFATE 75 MG TAB PO SCH (14:48)
[2022-07-06] MEDS: ENOXAPARIN SOD 40 MG/0.4 ML SYRINGE SC SCH (14:50)
[2022-07-06] MEDS ORDERED: VANCOMYCIN 1GM/250ML 250 ML IV SCH (15:00)
[2022-07-06] MEDS ORDERED: EMPA1TAB3 PO (16:05)
[2022-07-06] MEDS: PIPERACILLIN-TAZOB 3.375GM 100 ML IV SCH ×2 (16:50→21:20)
[2022-07-06] MEDS: ACETAMINOPHEN 325 MG TAB PO PRN (20:34)
[2022-07-06] MEDS: VANCOMYCIN 1GM/250ML 250 ML IV SCH (20:34)
[2022-07-06] MEDS: ATORVASTATIN 20 MG TAB PO SCH (21:17)
[2022-07-06 22:00] VITALS: BP 144/51
[2022-07-07] MEDS: PIPERACILLIN-TAZOB 3.375GM 100 ML IV SCH ×4 (03:47→21:42)
[2022-07-07 05:00] VITALS: BP 131/32
[2022-07-07 05:46] LABS: Basophils # (auto) 0 10 ^3/uL (0-0.2); Eosinophils # (auto) 0.4 10 ^3/uL (0-0.8); Lymphocytes # (auto) 2.1 10 ^3/uL (0.4-5.4); Red Blood Cells 4.11 10^6/uL (4.5-5.90); White Blood Cell 8.2 10^3/uL (4.4-10.8)
[2022-07-07 05:48] LABS: Basophils % (auto) 0.3 % (0.0-2.0); Eosinophils % (auto) 4.5 % (0.0-7.0); Hematocrit 30.4 % (41.0-53.0); Hemoglobin 10.1 g/dL (13.5-17.5); Lymphocytes % (auto) 25.7 % (10.0-50.0); Mean Corpuscular Hemoglobin 24.5 pg (28.0-32.0); Mean Corpuscular Hgb Conc. 33.1 g/dL (32.0-36.0); Mean Corpuscular Volume 74.1 fL (80.0-100.0); Monocytes # (auto) 0.6 10 ^3/uL (0-1.3); Monocytes % (auto) 7.9 % (0.0-12.0); Neutrophils # (auto) 5.1 10 ^3/uL (1.6-8.6); Neutrophils % (auto) 61.6 % (37.0-80.0); Red Cell Distribution Width 17.6 % (11.8-14.3)
[2022-07-07 05:50] LABS: BUN/Creatinine Ratio 23.1; Calcium 8.7 mg/dL (8.5-10.1); Potassium 3.8 mmol/L (3.5-5.1)
[2022-07-07] MEDS: LEVOTHYROXINE SODIUM 50 MCG TAB PO SCH (06:49)
[2022-07-07] MEDS: InsuLIN REG 1unit/0.01ml Soln (100units/ml) SC SCH ×4 (06:50→21:43)
[2022-07-07] MEDS: ACCU-CHEK COMFORT CURVE STRIP VI SCH ×4 (06:50→21:43)
[2022-07-07 08:00] VITALS: BP 135/47
[2022-07-07 08:49] LABS: Urine Bacteria NONE SEEN /hpf (None Seen); Urine Blood Negative /uL (Negative); Urine WBC 1 /hpf (0 - 3)
[2022-07-07] MEDS: PANTOPRAZOLE 40 MG TAB PO SCH (09:55)
[2022-07-07] MEDS: CLOPIDOGREL BISULFATE 75 MG TAB PO SCH (09:55)
[2022-07-07] MEDS: LOSARTAN POTASSIUM 50 MG TAB PO SCH (09:56)
[2022-07-07] MEDS: ENOXAPARIN SOD 40 MG/0.4 ML SYRINGE SC SCH (10:00)
[2022-07-07 12:00] VITALS: BP 145/60
[2022-07-07] MEDS: VANCOMYCIN 1GM/250ML 250 ML IV SCH (15:31)
[2022-07-07] MEDS: ACETAMINOPHEN 325 MG TAB PO PRN (15:43)
[2022-07-07 16:00] VITALS: BP 111/52
[2022-07-07 20:00] VITALS: BP 122/54
[2022-07-07] MEDS: ATORVASTATIN 20 MG TAB PO SCH (21:42)
[2022-07-07 22:00] VITALS: BP 122/54
[2022-07-08] MEDS: PIPERACILLIN-TAZOB 3.375GM 100 ML IV SCH ×4 (03:58→21:33)
[2022-07-08 05:00] VITALS: BP 111/51
[2022-07-08] MEDS: InsuLIN REG 1unit/0.01ml Soln (100units/ml) SC SCH ×4 (06:21→21:34)
[2022-07-08] MEDS: LEVOTHYROXINE SODIUM 50 MCG TAB PO SCH (06:22)
[2022-07-08] MEDS: ACCU-CHEK COMFORT CURVE STRIP VI SCH ×4 (06:23→21:33)
[2022-07-08 08:00] VITALS: BP 120/54
[2022-07-08] MEDS: VANCOMYCIN 1GM/250ML 250 ML IV SCH (09:14)
[2022-07-08] MEDS ORDERED: BUPIVACAINE 0.5% P/F INJ 10 ML VIAL ONE (09:21)
[2022-07-08] MEDS ORDERED: methylPREDNISolone ACETATE 80 MG/ML VL ONE (09:21)
[2022-07-08] MEDS ORDERED: BUPIVACAINE 0.25% INJ 50ML VIAL ONE (09:22)
[2022-07-08] MEDS ORDERED: fentaNYL CITRATE 100 MCG/2 ML VL ONE (09:24)
[2022-07-08] MEDS ORDERED: MEPERIDINE HCL (50 MG/ML) 1 ML VIAL ONE (09:25)
[2022-07-08] MEDS ORDERED: MIDAZOLAM HCL 2MG/2ML 2ml VIAL (1mg/ml) ONE (09:25)
[2022-07-08] MEDS ORDERED: hydrALAZINE HCL 20 MG/ML VL IV PRN (09:30)
[2022-07-08] MEDS ORDERED: MIDAZOLAM HCL 2MG/2ML 2ml VIAL (1mg/ml) IV PRN (09:30)
[2022-07-08] MEDS ORDERED: LABETALOL HCL 5 MG/ML 4ML SYRINGE IV PRN (09:30)
[2022-07-08] MEDS ORDERED: MORPHINE SULFATE 4 MG/ML SYR/VIAL IV PRN (09:30)
[2022-07-08] MEDS ORDERED: HYDROmorphone HCL 2 MG/ML VL/or syr IV PRN (09:30)
[2022-07-08] MEDS ORDERED: ePHEDrine SULFATE 50 MG/ML AMP IV PRN (09:30)
[2022-07-08] MEDS ORDERED: ONDANSETRON HCL 4 MG/2 ML VIAL IV PRN (09:30)
[2022-07-08] MEDS ORDERED: ceFAZolin 1GM VL ONE (10:11)
[2022-07-08] MEDS ORDERED: DexAMETHasone SOD PHOS 10MG/1ML VIAL INJ ONE (10:19)
[2022-07-08] MEDS ORDERED: PROPOFOL 10 MG/ML 20 ML IV ONE (10:19)
[2022-07-08 12:00] VITALS: BP 120/50
[2022-07-08] MEDS: ENOXAPARIN SOD 40 MG/0.4 ML SYRINGE SC SCH (12:07)
[2022-07-08] MEDS: CLOPIDOGREL BISULFATE 75 MG TAB PO SCH (12:07)
[2022-07-08] MEDS: PANTOPRAZOLE 40 MG TAB PO SCH (12:07)
[2022-07-08] MEDS: LOSARTAN POTASSIUM 50 MG TAB PO SCH (12:08)
[2022-07-08 16:00] VITALS: BP 138/56
[2022-07-08] MEDS: ACETAMINOPHEN 325 MG TAB PO PRN (21:33)
[2022-07-08] MEDS: ATORVASTATIN 20 MG TAB PO SCH (21:33)
[2022-07-08 22:00] VITALS: BP 143/58
[2022-07-09] MEDS: VANCOMYCIN 1GM/250ML 250 ML IV SCH (03:00)
[2022-07-09] MEDS: PIPERACILLIN-TAZOB 3.375GM 100 ML IV SCH ×2 (03:46→10:06)
[2022-07-09 05:00] VITALS: BP 95/54
[2022-07-09] MEDS: LEVOTHYROXINE SODIUM 50 MCG TAB PO SCH (06:14)
[2022-07-09] MEDS: ACCU-CHEK COMFORT CURVE STRIP VI SCH ×2 (06:14→12:58)
[2022-07-09 06:30] VITALS: BP 108/49
[2022-07-09] MEDS: InsuLIN REG 1unit/0.01ml Soln (100units/ml) SC SCH ×2 (06:34→12:57)
[2022-07-09 09:00] VITALS: BP 115/48
[2022-07-09] MEDS: CLOPIDOGREL BISULFATE 75 MG TAB PO SCH (10:05)
[2022-07-09] MEDS: ENOXAPARIN SOD 40 MG/0.4 ML SYRINGE SC SCH (10:05)
[2022-07-09] MEDS: PANTOPRAZOLE 40 MG TAB PO SCH (10:05)
[2022-07-09] MEDS ORDERED: ERGOCALCIFEROL 50,000 UNIT(1.25MG) CAP PO SCH (10:15)
[2022-07-09] MEDS: LOSARTAN POTASSIUM 50 MG TAB PO SCH (10:24)
[2022-07-09 10:45] LABS: Basophils # (auto) 0 10 ^3/uL (0-0.2); Eosinophils # (auto) 0 10 ^3/uL (0-0.8); Lymphocytes # (auto) 0.6 10 ^3/uL (0.4-5.4); Monocytes # (auto) 0.3 10 ^3/uL (0-1.3); Monocytes % (auto) 5.3 % (0.0-12.0); Nucleated Red Blood Cells % 0.1 %
[2022-07-09 10:48] LABS: Basophils % (auto) 0.3 % (0.0-2.0); Eosinophils % (auto) 0.5 % (0.0-7.0); Hemoglobin 9.6 g/dL (13.5-17.5); Lymphocytes % (auto) 9.4 % (10.0-50.0); Mean Corpuscular Hemoglobin 23.8 pg (28.0-32.0); Mean Corpuscular Hgb Conc. 32.1 g/dL (32.0-36.0); Mean Corpuscular Volume 74.1 fL (80.0-100.0); Neutrophils % (auto) 84.5 % (37.0-80.0); Red Blood Cells 4.05 10^6/uL (4.5-5.90); Red Cell Distribution Width 17.5 % (11.8-14.3)
[2022-07-09 11:00] LABS: Potassium 3.5 mmol/L (3.5-5.1)
[2022-07-09 11:11] LABS: Albumin 3.5 g/dL (3.4-5.0); BUN/Creatinine Ratio 18.2; Bilirubin, Total 0.8 mg/dL (0.2-1.0); CRP High Sensitivity 7.86 mg/dL (< 0.3); Calcium 8.7 mg/dL (8.5-10.1)
[2022-07-09 13:00] VITALS: BP 116/57
[2022-07-09] MEDS ORDERED: VANCOMYCIN 1GM/250ML 250 ML IV SCH (14:00)
== END 2022-07-09 16:30 | DRG 629 ==
LOC: ER 21:05 → OVERFLOW 07-06 06:21 → EAST 07-06 15:00 → CENTRAL 07-06 18:32
PROVIDERS: ADMIT Nurse Practitioner; ATTEND Internal Medicine
PROC: 0QBP0ZZ Excision of Left Metatarsal, Open Approach (ICD-10-PCS; principal; 2022-07-08 10:15)
DX: E11.69 Type 2 diabetes mellitus with other specified complication (principal); M86.8X7 Other osteomyelitis, ankle and foot; E11.51 Type 2 diabetes mellitus with diabetic peripheral angiopathy without gangrene; E11.621 Type 2 diabetes mellitus with foot ulcer; E78.5 Hyperlipidemia, unspecified; L97.529 Non-pressure chronic ulcer of other part of left foot with unspecified severity; Z20.822 Contact with and (suspected) exposure to COVID-19; I10 Essential (primary) hypertension; Z95.1 Presence of aortocoronary bypass graft; Z79.4 Long term (current) use of insulin
CPT/HCPCS: 36415; 71045; 73630; 73700; 80048; 80053; 80202; 81001; 82043; 82306; 82962; 84484; 85025; 85610; 85652; 85730; 86141; 86850; 86900; 86901; 87075; 87076; 87077; 87186; 87205; 87426; 93005; G0378; J0690; J1100; J1815; J2250; J2543; J2704; J3490